=== PATIENT | female | born 1955 | race Caucasian/White ===

== ENCOUNTER 2017-02-21 17:58 | Emergency (ER) | payer BC ==
[~2017-02-21] VITALS: Ht 162.6 cm; Wt 61.4 kg
[~2017-02-21 17:58] MED LIST: CELEXA 20MG20 MG/TAB PO; WELLBUTRIN SR150 M1 PO
[2017-02-21 18:02] VITALS: TEMP 97.7
[2017-02-21] MEDS ORDERED: BIO-IDENTICAL HORMON (18:07)
[2017-02-21] MEDS ORDERED: MULTI VITAMINS1 TAB PO (18:07)
[2017-02-21] MEDS ORDERED: UNISOM25 MG PO (18:07)
[2017-02-21] MEDS ORDERED: ZOVIRAX 200MG200 MG PO (18:09)
[2017-02-21 19:02] LABS: BASO # 0.1 (0.0-0.2); BASO % 0.8 % (0.0-2.0); EOS # 0.1 (0.0-0.7); EOS % 1.8 % (0-4.0); GRAN # 4.1 (1.4-6.5); GRAN % 56.2 % (42.2-75.2); HEMATOCRIT 38.5 % (37.0-47.0); HEMOGLOBIN 13.3 g/dl (12.5-16.0); LYMPH # 2.2 (1.2-3.4); LYMPH % 30.5 % (20.0-51.0); MEAN CELL VOLUME 93 fl (80.0-100.0); MEAN CORPUSCULAR HEMOGLOBIN 32 pg (27.0-31.0); MEAN CORPUSCULAR HGB CONC 35 g/dl (33.0-37.0); MEAN PLATELET VOLUME 12.5 fl (7.4-10.4); MONO # 0.8 (0.1-0.6); MONO % 10.4 % (1.7-9.3); PLATELET COUNT 198 K/mm3 (130-400); RED BLOOD COUNT 4.12 M/mm3 (4.10-5.30); REDCELL DISTRIBUTION WIDTH-CV 13.2 % (11.5-14.5); WHITE BLOOD COUNT 7.3 K/mm3 (4.8-10.8)
[2017-02-21 19:10] LABS: ADJUSTED CALCIUM 9.2 mg/dL (8.4-10.2); ALANINE AMINOTRANSFERASE 35 U/L (9-52); ALBUMIN 4.3 gm/dL (3.5-5.0); ALKALINE PHOSPHATASE 50 U/L (50-136); ANION GAP 13 mmol/L (7-16); BILIRUBIN,TOTAL 0.5 mg/dL (0.0-1.0); BLOOD UREA NITROGEN 20 mg/dL (7-17); CALCIUM 9.4 mg/dL (8.4-10.2); CARBON DIOXIDE 25 mmol/L (22-30); CHLORIDE 101 mmol/L (98-107); CREATININE, serum 0.74 mg/dL (0.52-1.25); GLUCOSE 77 mg/dL (74-106); LIPASE 101 U/L (23-300); POTASSIUM 3.8 mmol/L (3.4-5.0); SODIUM 139 mmol/L (137-145); TOTAL PROTEIN 6.7 gm/dL (6.4-8.2)
[2017-02-21 19:22] LABS: B-TYPE NATRIURETIC PEPTIDE 75 pg/mL (0-125)
[2017-02-21 19:27] LABS: TROPONIN-I < 0.012 ng/mL (0.000-0.034)
[2017-02-21 23:27] VITALS: BP 155/77; PULSE 76
[2017-03-01] MEDS ORDERED: LIQUIFILM TEARS15 ML OS (08:15)
[2017-03-01] MEDS ORDERED: ASPIRIN 81M81 MG/TA2 PO (08:16)
[2017-03-01] MEDS ORDERED: MELATONIN5 M1 PO (08:17)
[2017-03-01] MEDS ORDERED: BONE UP PO (08:18)
[2017-03-01] MEDS ORDERED: ALOE VERA CONCE1 CAP (08:19)
[2017-03-01] MEDS ORDERED: POMEGRANATE WIT1 CAP PO (08:20)
[2017-03-01] MEDS ORDERED: [UNRECOGNIZED DRUG - OTHER] (08:21)
[2017-03-01] MEDS ORDERED: OMEGA (08:21)
== END 2017-02-21 23:28 | disposition home or self-care (01) ==
LOC: COL.ER 17:58
PROVIDERS: Emergency Medicine
DX: R68.84 Jaw pain (principal); M79.602 Pain in left arm; M54.2 Cervicalgia; Z87.891 Personal history of nicotine dependence
CPT/HCPCS: J7030

== ENCOUNTER → 2017-03-02 | Outpatient (CLI) | payer BC ==
[~2017-03-02] VITALS: Ht 162.6 cm; Wt 62.9 kg
[~2017-03-02] MED LIST changes: +ALOE VERA CONCE1 CAP; +ASPIRIN 81M81 MG/TA2 PO; +BIO-IDENTICAL HORMON; +BONE UP PO; +LIQUIFILM TEARS15 ML OS; +MELATONIN5 M1 PO; +MULTI VITAMINS1 TAB PO; +OMEGA; +POMEGRANATE WIT1 CAP PO; +UNISOM25 MG PO; +ZOVIRAX 200MG200 MG PO; +[UNRECOGNIZED DRUG - OTHER]
[2017-03-02 10:56] VITALS: BP 163/83; PULSE 68
[2017-03-02 12:03] VITALS: BP 150/82; PULSE 106
[2017-03-02 12:05] VITALS: BP 160/88; PULSE 142
[2017-03-02 12:06] VITALS: BP 160/90; PULSE 97
[2017-03-02 12:07] VITALS: PULSE 93
== END ==
LOC: COL.CARD 10:37
DX: I25.110 Atherosclerotic heart disease of native coronary artery with unstable angina pectoris (principal); E78.00 Pure hypercholesterolemia, unspecified; R06.02 Shortness of breath; R07.9 Chest pain, unspecified
CPT/HCPCS: A9502; J2785

== ENCOUNTER → 2017-04-28 | Outpatient (CLI) | payer BC | LOC: MC.RAD 15:55 | DX: Z12.31 Encounter for screening mammogram for malignant neoplasm of breast (principal) ==

== ENCOUNTER 2017-06-28 08:33 | Day surgery (SDC) | payer BC ==
[~2017-06-28] VITALS: Ht 162.6 cm; Wt 59.1 kg
[~2017-06-28 08:33] MED LIST changes: -ALOE VERA CONCE1 CAP; +ALOE VERA CONCE1 CAP PO; -ZOVIRAX 200MG200 MG PO; +ZOVIRAX400 MG PO
[2017-06-28] MEDS ORDERED: HAIRSKINNAILS PO (09:10)
[2017-06-28] MEDS ORDERED: [UNRECOGNIZED DRUG - OTHER] PO ×2 (09:12→09:13)
[2017-06-28] MEDS ORDERED: PROGESTERONE PO (09:16)
[2017-06-28] MEDS ORDERED: TRI EST PO (09:16)
[2017-06-28] MEDS ORDERED: GOOD SENSE SLEE25 M1 PO (09:17)
[2017-06-28] MEDS ORDERED: [UNRECOGNIZED DRUG - OTHER] PO (09:18)
[2017-06-28 09:33] VITALS: BP 135/70; PULSE 72; TEMP 97.9
[2017-06-28 10:33] VITALS: BP 106/67; PULSE 66; TEMP 97.4
[2017-06-28 10:48] VITALS: BP 89/55; PULSE 63
[2017-06-28 11:03] VITALS: BP 100/58; PULSE 60
[2017-06-28 11:05] VITALS: BP 99/53; PULSE 56
== END 2017-06-28 11:33 | disposition home or self-care (01) ==
LOC: SDCO 08:33
DX: Z12.11 Encounter for screening for malignant neoplasm of colon (principal); D12.4 Benign neoplasm of descending colon; K63.89 Other specified diseases of intestine; E78.00 Pure hypercholesterolemia, unspecified; Z80.0 Family history of malignant neoplasm of digestive organs
CPT/HCPCS: OP; J2250; J2405; J3010; J7030

== ENCOUNTER → 2019-05-24 | Outpatient (CLI) | payer BC ==
[~2019-05-24] MED LIST changes: +GOOD SENSE SLEE25 M1 PO; +HAIRSKINNAILS PO; +PROGESTERONE PO; +TRI EST PO; +[UNRECOGNIZED DRUG - OTHER] PO; +[UNRECOGNIZED DRUG - OTHER] PO
== END ==
LOC: MC.RAD 15:45
DX: Z12.31 Encounter for screening mammogram for malignant neoplasm of breast (principal)

== ENCOUNTER → 2022-08-30 | Outpatient (CLI) | payer MEDICARE, OTHER | LOC: MC.RAD 13:56 | DX: Z12.31 Encounter for screening mammogram for malignant neoplasm of breast (principal) ==